=== PATIENT | female | born 1985 | race Two or more races ===

== ENCOUNTER 2021-04-03 21:50 | Emergency (ER) | payer MEDICAID ==
[~2021-04-03] VITALS: Ht 160 cm; Wt 121.6 kg
[~2021-04-03 21:50] MED LIST: ACET-1746 PO; CLIN300C8 PO; NIC21P TOP
[2021-04-04 04:00] VITALS: BP 112/70
[2021-04-04] MEDS ORDERED: TETANUS-DIPTH-ACEL PERTUSSIS 0.5ML SYR Tdap IM ONE (04:00)
[2021-04-04] MEDS ORDERED: CLINDAMYCIN 900MG IV 50 ML IV ONE (04:00)
[2021-04-04] MEDS ORDERED: SODIUM CHLORIDE 0.9% 1,000 ML IV ONE (04:00)
[2021-04-04] MEDS ORDERED: cefTRIAXone 1GM/50ML D5W 50 ML IV ONE (04:00)
[2021-04-04] MEDS ORDERED: ACETAMINOPHEN 325 MG TAB PO ONE (04:30)
== END 2021-04-04 07:57 | disposition home or self-care (01) ==
LOC: ER 21:50
DX: S93.402A Sprain of unspecified ligament of left ankle, initial encounter (principal); S93.602A Unspecified sprain of left foot, initial encounter; L03.116 Cellulitis of left lower limb; X58.XXXA Exposure to other specified factors, initial encounter; Y93.64 Activity, baseball; Y92.89 Other specified places as the place of occurrence of the external cause; Y99.8 Other external cause status
CPT/HCPCS: 73610; 73630; 90471; 90715; 96365; 96367; 99284; J0696; J3490; J7030; 96372